=== PATIENT | male | born 1985 | race Caucasian/White ===

== ENCOUNTER 2022-05-11 21:50 | Emergency (ER) | payer OTHER ==
[2022-05-11] MEDS ORDERED: LIDOCAINE PATCH REMOVAL MC SCH (22:00)
[2022-05-11 22:01] VITALS: BP 130/78; PULSE 81; RESP 19; TEMP 98.8; BMI 34.2
[2022-05-11] MEDS ORDERED: predniSONE 20 MG TABLET (UD) PO ONE (22:21)
[2022-05-11] MEDS ORDERED: METHOCARBAMOL 750 MG TAB PO ONE (22:22)
[2022-05-11] MEDS ORDERED: LIDOCAINE 5% TOPICAL PATCH TP ONE (22:23)
[2022-05-11] MEDS ORDERED: predniSONE 20 MG TABLET (UD) ONE (22:26)
[2022-05-11] MEDS ORDERED: LIDOCAINE 5% TOPICAL PATCH ONE (22:26)
[2022-05-11] MEDS ORDERED: METHOCARBAMOL 500 MG TABLET ONE (22:26)
== END 2022-05-11 22:40 | disposition home or self-care (01) ==
LOC: JERFT 21:50
DX: M54.42 Lumbago with sciatica, left side (principal)
CPT/HCPCS: 99283-25